=== PATIENT | male | born 1940 | race Caucasian/White ===

== ENCOUNTER → 2020-09-25 00:22 | Outpatient (CLI) | payer MEDICARE, OTHER, SELFPAY ==
[2020-09-25 19:43] LABS: SARS-CoV-2 RNA PCR Negative
== END ==
PROVIDERS: PCP Internal Medicine; Visit Provider Internal Medicine Gastroenterology
DX: Z01.812 Encounter for preprocedural laboratory examination (principal); Z20.822 Contact with and (suspected) exposure to COVID-19
CPT/HCPCS: C9803; U0003; U0005

== ENCOUNTER 2020-09-29 02:32 | Day surgery (SDC) | payer MEDICARE, SELFPAY ==
[2020-09-21 12:43] VITALS: BMI 28.5
--- NOTE | 2020-09-29 07:45 | WPDANESEPPF ---
Anes - Initial Pre Proc Eval Procedure: Operation Date: 09/29/20 11:15 Proposed Procedures p Screening Colonoscopy - Evens Oden MD Date/Time: 09/29/20 07:45 Surgeon: Evens Oden MD Pre Op Diagnosis: hx of colon polyps Patient Data Age: 80 Gender: M Height: 1.73 m Weight: 85 kg Allergies Allergy/AdvReac Type Severity Reaction Status Date / Time No Known Allergies Allergy Unknown Verified 09/29/20 10:12 Home Medications Medication Instructions Recorded Confirmed Type amlodipine 5 mg PO DAILY 09/21/20 09/21/20 History aspirin 81 mg PO DAILY 09/21/20 09/21/20 History atenolol 25 mg PO DAILY 09/21/20 09/21/20 History brimonidine 1 drp EACH EYE BID 09/21/20 09/21/20 History bupropion HCl 150 mg PO DAILY 09/21/20 09/21/20 History calcium carbonate-mag hydroxid 1 tablet PO DAILY PRN 09/21/20 09/21/20 History [Antacid (calcium carb-mag hyd)] clopidogrel 75 mg PO DAILY 09/21/20 09/21/20 History donepezil 10 mg PO DAILY 09/21/20 09/21/20 History finasteride 5 mg PO DAILY 09/21/20 09/21/20 History lamotrigine 200 mg PO DAILY 09/21/20 09/21/20 History latanoprost 1 drp EACH EYE DAILY 09/21/20 09/21/20 History paroxetine HCl 60 mg PO DAILY 09/21/20 09/21/20 History pitavastatin calcium [Livalo] 2 mg PO DAILY 09/21/20 09/21/20 History risperidone 1 mg PO DAILY 09/21/20 09/21/20 History Patient hx anesthesia problems: none Family hx anesthesia problems: none PMFSH Past Medical History Medical History (Updated 09/29/20 @ 10:20 by Evens Oden MD) CAD (coronary artery disease) Chronic GERD Depression HTN (hypertension) Hyperlipidemia Osteoarthritis Prostate CA TIA (transient ischemic attack) Surgical History Surgical History (Updated 09/29/20 @ 07:46 by Michael Landa MD) S/P CABG (coronary artery bypass graft) Social History Social History Smoking packs per day: 1 Smoking cigarettes per day: 20.0 Years smoked: 25 Smoking pack-years: 25.00 Smoking status: Former smoker Tobacco type: cigarettes Alcohol use details: SELDOM Living arrangements: with family Spiritual care concerns: No Anes - Eval Final PreProcedure Day of Procedure 09/29/20 07:45 Patient weight: overweight Heart: regular rate and rhythm Lungs: clear to auscultation and normal air movement Airway: Mallampati scale class II Neurological: alert and oriented Last oral intake: >/= 8 hours ASA classification: III Emergent: no Anesthetic plan: proceed Anesthesia type and monitoring: general GIVS Informed Consent: The patient's anesthetic plan and its attendant risks and benefits were discussed with the patient/family/POA. Questions were solicited and answers provided to the satisfaction of the patient/family/POA.
[2020-09-29 10:14] VITALS: BP 160/93; PULSE 89; RESP 17; TEMP 35.9; O2SAT 95; BMI 27.3
--- NOTE | 2020-09-29 10:18 | WPDGICN ---
Assessment and Plan Assessment and plan (1) History of colon polyps: Code(s): Z86.010 - Personal history of colonic polyps Status: Acute Assessment and Plan: Patient presents for colonoscopy today because of his prior history of colon polyps. Colonoscopy will be performed further recommendations will be given after endoscopy. GI Consult Note Consult date/time: 09/29/20 10:18 HPI: Mahad Weinstein is a 80 year old male Presents for screening colonoscopy. Patient has a history of colon polyps in the past. He presents today for follow-up examination. States current weight appetite bowel movements normal. He denies any bleeding. He has had no weight loss. Family history is noncontributory. Patient's past history is significant for atherosclerotic heart disease. He has a history of heart bypass surgery. Additionally has been treated with 2 previous left hip replacement. His states he has signs of early dementia. He has an ongoing tremor. Review of Systems Review of Systems: All systems reviewed & are unremarkable except as noted in HPI and below PMFSH Past Medical History Medical History (Updated 09/29/20 @ 10:20 by Evens Oden MD) CAD (coronary artery disease) Chronic GERD Depression HTN (hypertension) Hyperlipidemia Osteoarthritis Prostate CA TIA (transient ischemic attack) Surgical History Surgical History (Updated 09/29/20 @ 07:46 by Michael Landa MD) S/P CABG (coronary artery bypass graft) Social History Social History Smoking packs per day: 1 Smoking cigarettes per day: 20.0 Years smoked: 25 Smoking pack-years: 25.00 Smoking status: Former smoker Tobacco type: cigarettes Alcohol use details: SELDOM Living arrangements: with family Spiritual care concerns: No Meds Home Medications and Allergies Home Medications Medication Instructions Recorded Confirmed Type amlodipine 5 mg PO DAILY 09/21/20 09/21/20 History aspirin 81 mg PO DAILY 09/21/20 09/21/20 History atenolol 25 mg PO DAILY 09/21/20 09/21/20 History brimonidine 1 drp EACH EYE BID 09/21/20 09/21/20 History bupropion HCl 150 mg PO DAILY 09/21/20 09/21/20 History calcium carbonate-mag hydroxid 1 tablet PO DAILY PRN 09/21/20 09/21/20 History [Antacid (calcium carb-mag hyd)] clopidogrel 75 mg PO DAILY 09/21/20 09/21/20 History donepezil 10 mg PO DAILY 09/21/20 09/21/20 History finasteride 5 mg PO DAILY 09/21/20 09/21/20 History lamotrigine 200 mg PO DAILY 09/21/20 09/21/20 History latanoprost 1 drp EACH EYE DAILY 09/21/20 09/21/20 History paroxetine HCl 60 mg PO DAILY 09/21/20 09/21/20 History pitavastatin calcium [Livalo] 2 mg PO DAILY 09/21/20 09/21/20 History risperidone 1 mg PO DAILY 09/21/20 09/21/20 History Allergies Allergy/AdvReac Type Severity Reaction Status Date / Time No Known Allergies Allergy Unknown Verified 09/29/20 10:12 Exam Narrative: Exam Narrative: Physical exam reveals patient be alert. Vital signs are stable. HEENT exam is unremarkable. He is anicteric. Lungs are clear to auscultation and percussion. Heart is without murmur or extra sounds. Abdominal exam bowel sounds present soft nontender with no hepatosplenomegaly digital external rectal exam is normal.
[2020-09-29] MEDS: LACTATED RINGERS 1,000 ML 150 ML IV CONT (10:25)
--- NOTE | 2020-09-29 11:02 | SUR.OPER ---
skin tear right forearm noted prior to start of procedure
[2020-09-29 11:20] VITALS: BP 96/53; PULSE 72; RESP 20; O2SAT 96
[2020-09-29 11:30] VITALS: BP 139/69; PULSE 79; RESP 21; O2SAT 98
[2020-09-29 11:40] VITALS: BP 166/85; PULSE 77; RESP 22; O2SAT 100
== END 2020-09-29 11:53 | disposition home or self-care (01) ==
PROVIDERS: PCP Internal Medicine; Visit Provider Internal Medicine Gastroenterology
PROC: 0DJD8ZZ Inspection of Lower Intestinal Tract, Via Natural or Artificial Opening Endoscopic (ICD-10-PCS; CPT 45378; principal; 2020-09-29 11:15)
DX: Z12.11 Encounter for screening for malignant neoplasm of colon (principal); D12.5 Benign neoplasm of sigmoid colon; D12.3 Benign neoplasm of transverse colon; I25.10 Atherosclerotic heart disease of native coronary artery without angina pectoris; I10 Essential (primary) hypertension; E78.5 Hyperlipidemia, unspecified; F32.9 Major depressive disorder, single episode, unspecified; Z86.73 Personal history of transient ischemic attack (TIA), and cerebral infarction without residual deficits; Z85.46 Personal history of malignant neoplasm of prostate; Z79.02 Long term (current) use of antithrombotics/antiplatelets; Z79.82 Long term (current) use of aspirin; Z95.1 Presence of aortocoronary bypass graft; Z87.891 Personal history of nicotine dependence
CPT/HCPCS: 45385; 88305; J2001; J2704; J7120